=== PATIENT | female | born 1995 ===

== ENCOUNTER 2017-03-05 08:45 | Day surgery (SDC) | payer OTHER ==
[2016-06-04 14:35] VITALS: BMI 17.5
[2017-03-05] MEDS ORDERED: Lidocaine 2% Inj (20ml) ONE (09:36)
[2017-03-05] MEDS ORDERED: Bupivacaine 0.5% Inj(30mL) ONE (09:36)
[2017-03-05] MEDS ORDERED: ceFAZolin IV 1 gm in Dextrose 1 GM/50 ML BAG IVPB ONE (09:36)
[2017-03-05 09:39] VITALS: O2SAT 100
[2017-03-05] MEDS ORDERED: Lactated Ringer's 1,000 ML IV ONE (10:05)
[2017-03-05] MEDS ORDERED: Dexamethasone 4 mg/1 ml ONE (10:43)
[2017-03-05] MEDS ORDERED: Propofol 10 mg/ml Inj (20 ML) ONE (11:39)
[2017-03-05] MEDS ORDERED: Midazolam 2 MG/2 ML VIAL ONE (11:39)
[2017-03-05] MEDS ORDERED: Oxycodone/Acetaminophen 5/325 mg Tab PO PRN ×2 (11:45)
--- NOTE | 2017-03-05 11:51 | PCM.SURG1 ---
Surgeon's Initial Post Op Note - Surgeon's Notes Surgeon: Dr. Rosario Redevelopment Manager: Dr. Middleton, Dr. Bergeron Type of Anesthesia: General LMA, Local Pre-Operative Diagnosis: Right foot tarsal coalition Operative Findings: see dictation Post-Operative Diagnosis: Right foot tarsal coalition Operation Performed: Right foot resection of tarsal coalition Specimen/Specimens Removed: Right foot bone, soft tissue tarsal coalition Estimated Blood Loss: EBL {In ML}: 5 Blood Products Given: N/A Drains Used: No Drains Post-Op Condition: Good Date of Surgery/Procedure: 03/05/17 Time of Surgery/Procedure: 11:51
[2017-03-05] MEDS ORDERED: Lactated Ringer's 1,000 ML IV SCH (12:00)
--- NOTE | 2017-03-05 12:28 | RAD ---
PROCEDURE: Right Ankle Radiographs. HISTORY: s/p right foot surgery COMPARISON: None FINDINGS: BONES: No acute displaced fracture. JOINTS: No dislocation. SOFT TISSUES: Soft tissue swelling. No evidence of radiopaque foreign body. OTHER FINDINGS: None. IMPRESSION: Soft tissue swelling.
--- NOTE | 2017-03-05 12:38 | RAD ---
PROCEDURE: Right Foot Radiographs. HISTORY: s/p right foot surgery COMPARISON: None available. FINDINGS: BONES: No acute displaced fracture. JOINTS: No dislocation. SOFT TISSUES: Soft tissue swelling. No evidence of radiopaque foreign body. OTHER FINDINGS: None. IMPRESSION: Soft tissue swelling.
[2017-03-05 12:58] VITALS: BP 98/67; PULSE 73; RESP 18; TEMP 98
--- NOTE | 2017-03-12 16:12 | OP ---
PROCEDURE DATE: 03/05/2017 PREOPERATIVE DIAGNOSIS: Right foot middle facet tarsal coalition. POSTOPERATIVE DIAGNOSIS: Right foot middle facet tarsal coalition. PROCEDURE: Right foot resection of middle facet tarsal coalition. SURGEON: Estrada Rosario DPM. ASSISTANTS: Dr. Elijah Middleton, PGY-[address] Bernarda Bergeron, PGY-2. ANESTHESIA: LMA and local injection. INDICATIONS: The patient is a 21-year-old female with the above diagnoses. The patient has been treated by Dr. Rosario in his office on an outpatient basis, which really consists multiple appointments and concerning treatment options. The patient desires surgical intervention at this time. All alternatives, benefits, complications, and risks of the surgical procedure were explained to the patient at length. The patient acknowledged understanding and wished to proceed. All questions were addressed and answered. applied. Consent was signed and the status confirmed prior to bringing the patient to the operating room. OPERATIVE PROCEDURE: The patient was brought into the operating room and placed on the operating room table in the supine position. A pneumatic ankle tourniquet was applied to the mid calf level around the right calf. After induction of sedation, a local injection consisting of 20 mL of 1% lidocaine plain was administered in a local block fashion in the right ankle. Once local anesthesia was achieved, the foot was then prepped and draped in the normal sterile manner and the procedure began. PROCEDURE: Right foot resection of the middle facet tarsal coalition. Attention was directed to the lateral aspect of the right rear foot where a linear longitudinal incision was made extending from just distal to the lateral malleolus over the sinus tarsi. The incision was deepened through the superficial and subcutaneous tissue utilizing sharp and blunt dissection. Care was taken to retract all vital neurovascular structures throughout the duration of the procedure. All superficial bleeding vessels were cauterized utilizing electrocautery. The incision was then deepened down to the level of the sinus tarsi. Intraoperative flat screen was utilized to ensure appropriate positioning throughout the duration of the procedure. At this time, it was noted that the sinus tarsi was visualized. Utilizing a [place] elevator, the perosseous tissues were freed from the overlying surface of the calcaneus and talar. Dissection was then carried through the sinus tarsi medially to the middle facet of the subtalar joint. Again, intraoperative fluoroscopy was utilized to confirm appropriate position. Utilizing a rongeur and a [place] elevator, the fibrous and bony tissue from the coalition were resected. Next, a reciprocating rasp was utilized to sleeve down and break apart any prominent portions of the middle facet coalition. The [place] elevator was again utilized to free the coalition and it was noted at this time that there was a palpable breakage of the coalition of the middle facet. The reciprocating rasp and a needle-nose rongeur were then again utilized to remove any remaining portions of the coalition. Subsequently, range of motion was then assessed at this time and it was noted to be improved from the preoperative state. The surgical areas were flushed with copious amounts of sterile normal saline. Intraoperative fluoroscopy was again utilized to confirm resection of the coalition. The deep tissues were then reapproximated utilizing 3-0 Vicryl suture. The subcutaneous tissues were then reapproximated utilizing the 4-0 Vicryl suture. The skin was then reapproximated utilizing 4-0 Monocryl suture in a subcuticular running fashion. The intraoperative injection consisted of 10 mL of 0.5% Marcaine plain and a 1 mL of 4 mg dexamethasone. Postoperative bandages consisted of Steri-Strips, betadine soaked Adaptic, DSD, [place], and an Miguel Ángel bandage. POSTOPERATIVE CONDITION: The patient tolerated the procedure and anesthesia well with no apparent complications or complaints. The patient was transported from the OR to the recovery room with vital signs stable and neurovascular status intact. The patient will follow up with Dr. Rosario in his office on an outpatient basis. Elijah Middleton DPM
--- NOTE | 2017-03-12 16:54 | RAD ---
PROCEDURE: Intraoperative Fluoroscopy. HISTORY: RT. FOOT PAIN FINDINGS: Fluoroscopic assistance was provided for tarsal coalition procedure.. images from the current procedure: 2.0. Total fluoroscopic time (continuous mode) utilized during the procedure: 16 seconds.
== END 2017-03-05 13:08 | disposition home or self-care (01) ==
LOC: C.SDS 08:45
PROVIDERS: ATTEND Student in an Organized Health Care Education/Training Program
DX: Q66.89 Other specified congenital deformities of feet (principal)
CPT/HCPCS: 28116; 73610; 73620; 76000; 88304; J0690; J1100; J2250; J2704; J3010; J7120

== ENCOUNTER 2017-08-20 06:29 | Emergency (ER) | payer OTHER ==
[2017-08-20 06:30] VITALS: BMI 17.5
[2017-08-20] MEDS ORDERED: DiphenhydrAMINE 50 mg/ml Inj IVP STA (07:55)
[2017-08-20] MEDS ORDERED: DiphenhydrAMINE 50 mg/ml Inj ONE (07:58)
[2017-08-20 09:09] VITALS: RESP 18
--- NOTE | 2017-08-20 09:23 | C.PDOC ---
History Of Present Illness 22 y/o female with history of migraine presents to ED with complaints of headache since 5am this morning, gradual onset, no thunderclap association, not worst headache associated photophobia, nausea and vomiting and similar to previous migrane headache. Patient states pain is on front, back and right side of head. Patient states headache is worse then prior episodes and states last severe headache was 2 years ago. Patient reports she took advil with no improvement and denies fever, chills, dizziness, injury or any other complaints at this time. PMD: Dr. Benitez Time Seen by Provider: 08/20/17 07:31 Chief Complaint (Nursing): Headache History Per: Patient Onset/Duration Of Symptoms: Hrs Current Symptoms Are (Timing): Still Present Quality: "Pain" Associated Symptoms: Photophobia, Nausea, Vomiting Past Medical History Reviewed: Historical Data, Nursing Documentation, Vital Signs Vital Signs: Last Vital Signs Temp 98.7 F 08/20/17 13:09 Pulse 72 08/20/17 13:09 Resp 18 08/20/17 13:09 BP 100/58 L 08/20/17 13:09 Pulse Ox 98 08/22/17 07:52 - Medical History PMH: Migraine Surgical History: No Surg Hx - [facility] Procedures EXCISION OF LEFT FOOT, OPEN APPROACH (06/11/16) Family History: States: No Known Family Hx - Social History Hx Alcohol Use: No Hx Substance Use: No Review Of Systems Except As Marked, All Systems Reviewed And Found Negative. Gastrointestinal: Positive for: Nausea, Vomiting Neurological: Positive for: Headache Physical Exam - Physical Exam Appears: Non-toxic, No Acute Distress Skin: Warm, Dry, No Rash Head: Atraumatic, Normacephalic Eye(s): bilateral: Normal Inspection, Other (no papilledema noted ) Oral Mucosa: Moist Neck: Normal ROM, Supple Cardiovascular: Rhythm Regular Respiratory: Normal Breath Sounds, No Rales, No Rhonchi, No Wheezing Gastrointestinal/Abdominal: Soft, No Tenderness, No Guarding, No Rebound Extremity: Normal ROM, Capillary Refill (<2 seconds) Neurological/Psych: Oriented x3, Normal Speech, Normal Motor, Normal Sensation ED Course And Treatment O2 Sat by Pulse Oximetry: 98 (RA) Pulse Ox Interpretation: Normal Medical Decision Making Medical Decision Making: Assessment: Migraine headache exacerbation Plan: POC urine , Pepcid, Reglan and CT scan Head Progress: 1155am: Spoke to Dr. Benitez advises patient to receive dose of Solumedrol, states patient had normal MRI in 2016. Patient feeling better after dose of Solumedrol Patient will be d/c with follow up to see Dr. Benitez Disposition Discussed With Dr.: Cesario Benitez Doctor Will See Patient In The: Office Counseled Patient/Family Regarding: Studies Performed, Diagnosis, Need For Followup, Rx Given - Disposition Referrals: Cesario Benitez MD [Staff Provider] - Disposition: HOME/ ROUTINE Disposition Time: 12:31 Condition: IMPROVED Additional Instructions: follow up with Dr. Benitez in 2 days call to make an appointment take medications as prescribed return to ER if symptoms worsens or progress Prescriptions: Methylprednisolone [Medrol Dose Pack (21 tabs)] 4 mg PO DAILY #21 mg Instructions: Migraine Headache (ED) Forms: [facility] (Uzbek), General Discharge Instructions - Clinical Impression Clinical Impression: Headache, Migraine - Scribe Statement The provider has reviewed the documentation as recorded by the Angieibdarlene Salgado All medical record entries made by the Angieibdarlene were at my direction and personally dictated by me. I have reviewed the chart and agree that the record accurately reflects my personal performance of the history, physical exam, medical decision making, and the department course for this patient. I have also personally directed, reviewed, and agree with the discharge instructions and disposition.
--- NOTE | 2017-08-20 09:31 | CT ---
PROCEDURE: CT HEAD WITHOUT CONTRAST. HISTORY: Dizziness COMPARISON: None available. TECHNIQUE: Axial computed tomography images were obtained through the head/brain without intravenous contrast. Radiation dose: Total exam DLP = 740.84 mGy-cm. This CT exam was performed using one or more of the following dose reduction techniques: Automated exposure control, adjustment of the mA and/or kV according to patient size, and/or use of iterative reconstruction technique. FINDINGS: HEMORRHAGE: No intracranial hemorrhage. BRAIN: Melton-white matter differentiation is preserved. There is no mass, mass effect or abnormal extra-axial fluid collection. VENTRICLES: The ventricles are normal in size, shape and configuration. CALVARIUM: The skull base and calvarium are normal. PARANASAL SINUSES: Predominantly clear. MASTOID AIR CELLS: Predominantly clear. OTHER FINDINGS: None. IMPRESSION: No acute intracranial abnormality.
[2017-08-20] MEDS ORDERED: Morphine 4 MG/ML VIAL ONE (12:03)
[2017-08-20 12:33] VITALS: O2SAT 98
[2017-08-20 13:10] VITALS: BP 100/58; PULSE 72; TEMP 98.7
== END 2017-08-20 13:00 | disposition home or self-care (01) ==
LOC: C.ER 06:29
DX: G43.909 Migraine, unspecified, not intractable, without status migrainosus (principal)
CPT/HCPCS: 70450; 96372; 96374; 96375; 99285; J1200; J1885; J2270; J2405; J2765; J2930; J3030